=== PATIENT | male | born 1970 | race Caucasian/White ===

== ENCOUNTER 2022-06-07 11:41 | Inpatient (IN) | payer MEDICAID ==
[~2022-06-07] VITALS: Ht 177.8 cm; Wt 125.4 kg
[2022-06-07] MEDS ORDERED: ASPIRIN 81MG TABLET PO ONE (14:00)
[2022-06-07] MEDS ORDERED: NITROGLYCERIN 0.4MG TABLET SL SL PRN (14:00)
[2022-06-07 14:34] LABS: CHLORIDE 104 mEq/L (98-107)
[2022-06-07 14:35] LABS: BASOPHILS % 0.6 % (0.0-2.0); EOSINOPHILS % 1.4 % (0.0-5.0); HEMATOCRIT. 47.6 % (42.0-52.0); HEMOGLOBIN. 16.4 g/dL (14.0-18.0); LYMPHOCYTES % 30.3 % (20.0-50.0); MEAN CORPUSCULAR HEMOGLOBIN 30.6 pg (28.0-32.0); MEAN CORPUSCULAR VOLUME 88.6 fL (80.0-94.0); MEAN PLATELET VOLUME 8.7 fl (7.4-10.4); MONOCYTES % 6.6 % (2.0-8.0); NEUTROPHILS % 61.1 % (40.0-76.0); PLATELET 219 x1000/uL (130-400); RED BLOOD CELL COUNT 5.37 mill/uL (4.7-6.1); RED CELL DISTRIBUTION WIDTH 14.2 % (11.6-14.6)
[2022-06-07] MEDS ORDERED: ACETAMINOPHEN 325MG TABLET PO PRN ×2 (16:00)
[2022-06-07] MEDS ORDERED: IPRATROPIUM/ALBUTEROL 0.5-3(2.5)MG/3ML NEB HHN PRN (16:00)
[2022-06-07] MEDS ORDERED: ONDANSETRON HCL 4MG/2ML INJ IV PRN (16:00)
[2022-06-07] MEDS ORDERED: MAGNESIUM/ALUMINUM HYDROXIDE/SIMETHICONE 30ML UDC PO PRN (16:00)
[2022-06-07] MEDS ORDERED: DOCUSATE SODIUM 100MG CAPSULE PO PRN (16:00)
[2022-06-07] MEDS ORDERED: CLONIDINE 0.1MG TABLET PO PRN (16:00)
[2022-06-07] MEDS: ASPIRIN 81MG TABLET PO SCH (16:43)
[2022-06-07 17:20] LABS: D-DIMER 0.2 mg/L FEU (<0.50); INR 1.1; PROTHROMBIN TIME 11.4 sec (9.6-11.0); T4 FREE 1.14 ng/dL (0.76-1.46)
[2022-06-07 17:42] LABS: VITAMIN B12 SERUM 345 pg/mL (211-911)
[2022-06-07 18:51] LABS: PROSTRATE SPECIFIC AG TOTAL 2.82 ng/mL (0.0-4.0)
[2022-06-07 21:50] VITALS: BP 155/94
[2022-06-07 22:08] VITALS: BP 155/94
[2022-06-07] MEDS: ENOXAPARIN 30MG/0.3ML SYR SUBCUT SCH (22:36)
[2022-06-07] MEDS ORDERED: IPRATROPIUM BROMIDE (0.02%) 0.5MG/2.5ML NEB HHN PRN (22:45)
[2022-06-07] MEDS ORDERED: ALBUTEROL (0.083%) 2.5MG/3ML NEB HHN PRN (22:45)
[2022-06-07] MEDS ORDERED: ASPI-1497 PO (22:47)
[2022-06-07 23:13] LABS: CLARITY URINE CLEAR (CLEAR); COLOR URINE YELLOW (YELLOW); KETONES URINE NEGATIVE (NEGATIVE); LEUKOCYTE ESTERASE URINE 3+ (NEGATIVE); NITRITE URINE NEGATIVE (NEGATIVE); OCCULT BLOOD URINE TRACE (NEGATIVE); PH URINE 7.5 (4.5-8.0); PROTEIN URINE NEGATIVE (NEGATIVE); SPECIFIC GRAVITY URINE 1.014 (1.005-1.030); UROBILINOGEN URINE 0.2 E.U./dL (0.2-1.0)
[2022-06-07 23:51] LABS: CREATINE KINASE MB FRACTION 1.4 ng/mL (0.5-3.6)
[2022-06-08] VITALS: BP 127/73
[2022-06-08 00:56] LABS: *AMPHETAMINES SCREEN URINE NEGATIVE (NEGATIVE); *BARBITURATES SCREEN URINE NEGATIVE (NEGATIVE); *BENZODIAZEPINES SCREEN URINE NEGATIVE (NEGATIVE); *COCAINE SCREEN URINE NEGATIVE (NEGATIVE); CANNABINOID URINE SCREEN NEGATIVE (NEGATIVE); METHADONE URINE SCREEN NEGATIVE (NEGATIVE); OPIATES URINE SCREEN NEGATIVE (NEGATIVE); PHENCYCLIDINE URINE SCREEN NEGATIVE (NEGATIVE)
[2022-06-08 04:00] VITALS: BP 134/74
[2022-06-08 04:49] LABS: BASOPHILS % 0.5 % (0.0-2.0); EOSINOPHILS % 2.8 % (0.0-5.0); HEMATOCRIT. 47.5 % (42.0-52.0); HEMOGLOBIN. 16.5 g/dL (14.0-18.0); LYMPHOCYTES % 35.3 % (20.0-50.0); MEAN CORPUSCULAR HEMOGLOBIN 30.5 pg (28.0-32.0); MEAN CORPUSCULAR VOLUME 88.2 fL (80.0-94.0); MONOCYTES % 6.9 % (2.0-8.0); NEUTROPHILS % 54.5 % (40.0-76.0); RED BLOOD CELL COUNT 5.39 mill/uL (4.7-6.1); RED CELL DISTRIBUTION WIDTH 13.8 % (11.6-14.6)
[2022-06-08 05:03] LABS: CHLORIDE 106 mEq/L (98-107)
[2022-06-08 05:30] LABS: CREATINE KINASE 96 IU/L (39-308); CREATINE KINASE MB FRACTION 1.2 ng/mL (0.5-3.6); HDL CHOLESTEROL 39 mg/dL (40-59); LDL CHOLESTEROL 103 mg/dL (5-100)
[2022-06-08] MEDS ORDERED: CEFTRIAXONE 1 G PREMIX 50 ML IV SCH (06:00)
[2022-06-08 08:00] VITALS: BP 127/72
[2022-06-08] MEDS ORDERED: CEFTRIAXONE 1,000 MG in DEXTROSE 5% WATER 50 ML IV SCH (08:00)
[2022-06-08] MEDS ORDERED: SODIUM CHLORIDE 0.45% 500 ML IV ONE (08:00)
[2022-06-08 08:36] LABS: PLATELET 203 x1000/uL (130-400)
[2022-06-08] MEDS: ENOXAPARIN 30MG/0.3ML SYR SUBCUT SCH (08:55)
[2022-06-08] MEDS ORDERED: ASPIRIN 81MG EC TABLET PO SCH (09:00)
[2022-06-08] MEDS: ASPIRIN 81MG TABLET PO SCH (09:13)
[2022-06-08] MEDS ORDERED: IODIXANOL 320MG/ML 100 ML BOTTLE IV ONE ×3 (09:59→12:11)
[2022-06-08] MEDS ORDERED: ASPIRIN/SOD BICARB/CITRIC ACID 324MG TAB EFF ONE (10:00)
[2022-06-08] MEDS ORDERED: LIDOCAINE HCL/PF 1% 10 MG/ML 5ML VIAL ONE (10:06)
[2022-06-08] MEDS ORDERED: FENTANYL CITRATE/PF 50MCG/ML 2ML VIAL ONE (10:21)
[2022-06-08] MEDS ORDERED: MIDAZOLAM HCL 2 MG/2 ML VIAL ONE (10:21)
[2022-06-08] MEDS ORDERED: HEPARIN 1000 UNITS/ML 10ML ONE (10:22)
[2022-06-08] MEDS ORDERED: HEPARIN SODIUM 1,000 UNIT/1ML VIAL IV ONE ×2 (10:58→11:58)
[2022-06-08] MEDS ORDERED: CLOPIDOGREL 75MG TABLET ONE (11:56)
[2022-06-08] MEDS ORDERED: NICARDIPINE 100MCG/ML 10ML VIAL (CATH LAB) IV ONE (12:29)
[2022-06-08] MEDS ORDERED: NITROGLYCERIN 50MCG/ML 10ML VIAL (CATH LAB) IV ONE (12:29)
[2022-06-08] MEDS ORDERED: MORPHINE SULFATE 2 MG/ML CPJ (NOT FOR IM USE) IV PRN (12:30)
[2022-06-08] MEDS ORDERED: ACETAMINOPHEN 325MG TABLET PO PRN (12:30)
[2022-06-08] MEDS ORDERED: SODIUM CHLORIDE 0.45% 1,000 ML IV ONE (12:30)
[2022-06-08] MEDS ORDERED: ATROPINE SULFATE 1MG/10ML SYR IV PRN (12:30)
[2022-06-08] MEDS ORDERED: CLOPIDOGREL 75MG TABLET PO SCH ×2 (12:30→13:45)
[2022-06-08 13:18] VITALS: BP 127/72
[2022-06-08] MEDS ORDERED: NALOXONE HCL 0.4MG/ML VIAL IV PRN (16:00)
[2022-06-08 16:07] VITALS: BP 139/74
[2022-06-08 20:00] VITALS: BP 119/67
[2022-06-08] MEDS ORDERED: ATORVASTATIN CALCIUM 40MG TABLET PO SCH (21:00)
[2022-06-08] MEDS ORDERED: ATORVASTATIN CALCIUM 20MG TABLET PO SCH (21:00)
[2022-06-09] VITALS: BP 130/65
[2022-06-09 04:00] VITALS: BP 128/68
[2022-06-09] MEDS ORDERED: CLOP75TA33 PO (06:38)
[2022-06-09] MEDS ORDERED: ASPI-1497 PO (06:38)
[2022-06-09] MEDS ORDERED: ATOR40TA70 MT (06:38)
[2022-06-09 06:52] LABS: BASOPHILS % 0.4 % (0.0-2.0); EOSINOPHILS % 2.4 % (0.0-5.0); HEMATOCRIT. 45.9 % (42.0-52.0); LYMPHOCYTES % 12.3 % (20.0-50.0); MEAN CORPUSCULAR HEMOGLOBIN 30.9 pg (28.0-32.0); MEAN CORPUSCULAR VOLUME 88.9 fL (80.0-94.0); MEAN PLATELET VOLUME 8.6 fl (7.4-10.4); MONOCYTES % 7.3 % (2.0-8.0); NEUTROPHILS % 77.6 % (40.0-76.0); PLATELET 179 x1000/uL (130-400); RED BLOOD CELL COUNT 5.16 mill/uL (4.7-6.1); RED CELL DISTRIBUTION WIDTH 13.9 % (11.6-14.6)
[2022-06-09 08:00] VITALS: BP 123/69
[2022-06-09] MEDS ORDERED: CLOPIDOGREL 75MG TABLET PO SCH (09:00)
[2022-06-09] MEDS ORDERED: ASPIRIN 81MG TABLET PO SCH (09:00)
[2022-06-09 09:06] LABS: CHLORIDE 101 mEq/L (98-107)
[2022-06-09 09:27] VITALS: BP 123/69
== END 2022-06-09 11:04 | disposition home or self-care (01) | DRG 175 ==
LOC: ER 11:41 → MICUSO 16:27 → EDBEDREQ 16:27 → EDBEDREQTM 16:27 → ENRESERV 18:31 → 8WST 22:31 → 3WST 06-08 13:04
PROVIDERS: ADMIT Internal Medicine; ATTEND Internal Medicine
PROC: 027036Z Dilation of Coronary Artery, One Artery with Three Drug-eluting Intraluminal Devices, Percutaneous Approach (ICD-10-PCS; principal; 2022-06-08)
PROC: 4A023N7 Measurement of Cardiac Sampling and Pressure, Left Heart, Percutaneous Approach (ICD-10-PCS; 2022-06-08)
PROC: B2111ZZ Fluoroscopy of Multiple Coronary Arteries using Low Osmolar Contrast (ICD-10-PCS; 2022-06-08)
PROC: B2151ZZ Fluoroscopy of Left Heart using Low Osmolar Contrast (ICD-10-PCS; 2022-06-08)
DX: I25.10 Atherosclerotic heart disease of native coronary artery without angina pectoris (principal); I21.A1 Myocardial infarction type 2; E66.01 Morbid (severe) obesity due to excess calories; N39.0 Urinary tract infection, site not specified; E78.5 Hyperlipidemia, unspecified; Z20.822 Contact with and (suspected) exposure to COVID-19; F10.10 Alcohol abuse, uncomplicated; Z68.41 Body mass index [BMI] 40.0-44.9, adult; Z68.39 Body mass index [BMI] 39.0-39.9, adult
CPT/HCPCS: 36415; 71045; 80048; 80053; 80061; 80305; 81003; 82550; 82553; 82607; 82652; 82746; 83036; 83735; 83880; 84153; 84439; 84443; 84480; 84481; 84484; 85025; 85347; 85379; 87426; 92928; 92929; 93005; 93306; 93458; 99285; C1725; C1769; C1874; C1887; C1893; J0696; J1644; J1650; J2250; J3010; J3490; J7060; Q9967; G0103